=== PATIENT | male | born 1990 | race Caucasian/White ===

== ENCOUNTER 2019-05-18 16:11 | Emergency (ER) | payer SELFPAY ==
[~2019-05-18] VITALS: Ht 167.6 cm; Wt 63.5 kg
[~2019-05-18 16:11] MED LIST: CEPH500T PO
--- NOTE | 2019-05-18 16:15 | NUR ---
RIGHT ARM ELEVATED ON TWO PILLOWS ET ICE PACKS APPLIED..
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
--- OUTSIDE RECORDS SUMMARY | 2019-05-18 16:15 | XMS REPORT ---
Author Author CARMELITA JIMENEZ Organization [facility] Address [address] [place] [address] Care Team Providers Care Director Product Safety Name Role Phone CARMELITA JIMENEZ Unavailable PROBLEMS Unknown Problems ALLERGIES Substance Reaction Event Type Date Status N.K.D.A. Unknown Non Drug Allergy Oct, Unknown SOCIAL HISTORY No smoking Hx information available PLAN OF CARE Activity Details Follow Up prn Reason: VITAL SIGNS Height 65 in 2016-11-12 Weight 127.2 lbs 2016-11-12 Temperature 98.3 degrees Fahrenheit 2016-11-12 Heart Rate 76 bpm 2016-11-12 Respiratory Rate 18 2016-11-12 BMI 21.16 kg/m2 2016-11-12 Blood pressure systolic 128 mmHg 2016-11-12 Blood pressure diastolic 78 mmHg 2016-11-12 MEDICATIONS No Known Medications RESULTS Name Result Date Reference Range INFLUENZA A & B (IN HOUSE) 2016-11-12 INFLUENZA A negative INFLUENZA B negative Control + Lot # [id number] Exp date 2017 PROCEDURES Procedure Date Ordered Related Diagnosis Body Site INFLUENZA ASSAY W/OPTIC Nov 12, 2016 Office Visit, Est Pt., Level 3 Nov 12, 2016 IMMUNIZATIONS No Known Immunizations
--- NOTE | 2019-05-18 16:20 | NUR ---
MULTIPLE ABRASIONS ON BACK AND LACERATION CLEANED BY THE TECH.
--- NOTE | 2019-05-18 16:23 | NUR ---
PT BACK FROM CT ET COMPLAINS OF PAIN IN HIS COLARBONE. DR NOTIFIED ET NEW ORDERS RECIEVED.
[2019-05-18] MEDS ORDERED: fentaNYL INJECTION 100 MCG/2 ML AMP IVP ONE ×2 (16:30→19:45)
[2019-05-18] MEDS ORDERED: TETANUS,DIPTH,PERTUSS P/F (BOOSTRIX) 0.5 ML VIAL IM ONE (16:30)
[2019-05-18 16:43] LABS: BASOPHILS # (AUTO) 0.1 10^3/uL (0.0-0.1); BASOPHILS % (AUTO) 1 % (0-10); EOSINOPHILS % (AUTO) 0 % (0-10); HEMATOCRIT 48 % (40-54); HEMOGLOBIN 16.4 G/DL (13.3-17.7); LYMPHOCYTES # (AUTO) 0.8 X 10^3 (1.0-4.0); LYMPHOCYTES % (AUTO) 4 % (12-44); MEAN CORPUSCULAR HEMOGLOBIN 31 PG (25-34); MEAN CORPUSCULAR HGB CONC 35 G/DL (32-36); MEAN CORPUSCULAR VOLUME 90 FL (80-99); MONOCYTES # (AUTO) 1.1 X 10^3 (0.0-1.0); MONOCYTES % (AUTO) 6 % (0-12); NEUTROPHILS # (AUTO) 17.1 X 10^3 (1.8-7.8); NEUTROPHILS % (AUTO) 89 % (42-75); PLATELET COUNT 288 10^3/uL (130-400); RED CELL DISTRIBUTION WIDTH 13.1 % (10.0-14.5); WHITE BLOOD COUNT 19.1 10^3/uL (4.3-11.0)
[2019-05-18 17:06] LABS: ALANINE AMINOTRANSFERASE 40 U/L (0-55); ALBUMIN 4.7 GM/DL (3.2-4.5); ALKALINE PHOSPHATASE 74 U/L (40-136); BILIRUBIN,TOTAL 0.4 MG/DL (0.1-1.0); BUN/CREATININE RATIO 13; CALCIUM 9.7 MG/DL (8.5-10.1); CARBON DIOXIDE 27 MMOL/L (21-32); CHLORIDE 105 MMOL/L (98-107); CREATININE SERUM 1.18 MG/DL (0.60-1.30); GFR ESTIMATED > 60; GLUCOSE 124 MG/DL (70-105); POTASSIUM 4.4 MMOL/L (3.6-5.0); SODIUM 142 MMOL/L (135-145); TOTAL PROTEIN 7.4 GM/DL (6.4-8.2)
[2019-05-18 17:22] LABS: BAND NEUTROPHILS 0 %; BASOPHILS % (MANUAL) 0 %; EOSINOPHILS % (MANUAL) 0 %; LYMPHOCYTES % (MANUAL) 6 %; MONOCYTES % (MANUAL) 9 %; NEUTROPHILS % (MANUAL) 85 %
[2019-05-18 17:23] LABS: RBC MORPH NORMAL
[2019-05-18] MEDS ORDERED: morphine INJ 10 MG/ML 1ML (SYR OR VIAL) IVP STA (17:24)
--- NOTE | 2019-05-18 17:30 | NUR ---
PT PLACED IN SLING FOR COMFORT OF THE COLLARBONE. PT STATES IT IMMEDIATELY HELPED THE PAIN AFTER IT WAS PLACED.
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
[2019-05-18] MEDS ORDERED: LIDOCAINE 1% INJ 20 ML 20 ML VIAL ONE (17:58)
[2019-05-18] MEDS ORDERED: ETOMIDATE IV SOLN 20 MG/10 ML VIAL IV ONE (18:00)
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
[2019-05-18] MEDS ORDERED: LIDOCAINE 1% INJ 20 ML 20 ML VIAL INJ ONE (18:15)
[2019-05-18] MEDS ORDERED: OXYC-199 PO (18:42)
--- NOTE | 2019-05-18 18:57 | NUR ---
REPORT GIVEN TO JANET.
[2019-05-18] MEDS ORDERED: RX-OXYCODONE/APAP 5-325 MG #4 TAB PK PO PRN (19:00)
[2019-05-18] MEDS ORDERED: TRIM/SULFAMETH 160/800 (SEPTRA DS) TAB PO ONE (19:15)
[2019-05-18] MEDS ORDERED: fentaNYL INJECTION 100 MCG/2 ML AMP ONE (19:32)
[2019-05-18] MEDS ORDERED: CEPH-507 PO (19:36)
--- NOTE | 2019-05-18 19:53 | Diagnostic Imaging Report ---
INDICATION: Right wrist fracture, postreduction. TIME OF EXAM: 7:34 p.m. COMPARISON: Correlation is made with prior radiographs from earlier the same evening. FINDINGS: Wrist is now placed in a fiberglass splint. Distal radius fracture is again noted. There has been some improvement in the degree of dorsal displacement of distal radius fracture fragment although the there does appear to continue to be some mild displacement. Carpus and metacarpals are unremarkable. IMPRESSION: Improved alignment of the distal radius fracture, postreduction and splint placement. Dictated by: Dictated on workstation # [id number]
[2019-05-18 19:59] VITALS: BP 138/71
== END 2019-05-18 19:50 | disposition home or self-care (01) ==
LOC: EDUNIT# 16:11 → ER 16:13
DX: S62.114A Nondisplaced fracture of triquetrum [cuneiform] bone, right wrist, initial encounter for closed fracture (principal); S52.501A Unspecified fracture of the lower end of right radius, initial encounter for closed fracture; S42.022A Displaced fracture of shaft of left clavicle, initial encounter for closed fracture; S61.412A Laceration without foreign body of left hand, initial encounter; F17.200 Nicotine dependence, unspecified, uncomplicated; R40.2142 Coma scale, eyes open, spontaneous, at arrival to emergency department; R40.2252 Coma scale, best verbal response, oriented, at arrival to emergency department; R40.2362 Coma scale, best motor response, obeys commands, at arrival to emergency department; Z90.49 Acquired absence of other specified parts of digestive tract; V28.4XXA Motorcycle driver injured in noncollision transport accident in traffic accident, initial encounter
CPT/HCPCS: 29125; 36415; 71045; 73000; 73090; 73100; 73130; 80053; 80320; 85007; 85027; 90471; 90715; 96374; 96375; 96376

== ENCOUNTER → 2019-05-24 | Outpatient (CLI) | payer SELFPAY ==
[~2019-05-24] MED LIST changes: +CEPH-507 PO; +OXYC-199 PO
== END ==
LOC: ORTHO 09:24
PROVIDERS: ATTEND Orthopaedic Surgery
DX: S62.114A Nondisplaced fracture of triquetrum [cuneiform] bone, right wrist, initial encounter for closed fracture (principal); S52.501A Unspecified fracture of the lower end of right radius, initial encounter for closed fracture; S42.022A Displaced fracture of shaft of left clavicle, initial encounter for closed fracture; V28.4XXA Motorcycle driver injured in noncollision transport accident in traffic accident, initial encounter
CPT/HCPCS: 29065

== ENCOUNTER 2021-06-27 20:12 | Emergency (ER) | payer BC ==
[~2021-06-27] VITALS: Ht 167.7 cm; Wt 65.0 kg
[2021-06-27 20:23] VITALS: BP 121/76
--- NOTE | 2021-06-27 20:57 | ED Lower Extremity ---
General Chief Complaint: Laceration Stated Complaint: RIGHT CALF LACERATIONS Source: patient Exam Limitations: no limitations History of Present Illness Date Seen by Provider: Jun 27, 2021 Time Seen by Provider: 20:52 Initial Comments To ER with lacerations x2 to the lateral aspect of the right calf after cutting them on a ceramic piece of culvert. Tetanus vaccine is up-to-date. Onset: just prior to arrival Severity: moderate Pain/Injury Location: right leg Method of Injury: direct blow Modifying Factors: Worse With Movement Allergies and Home Medications Allergies Coded Allergies: No Known Drug Allergies (Unverified , 03/30/16) Home Medications Cephalexin 500 Mg Capsule, 500 MG PO BID Prescribed by: WYATT NAILS on 05/18/19 193 Oxycodone HCl/Acetaminophen 1 Each Tablet, 1-2 TAB PO Q4H PRN for PAIN-MODERATE Prescribed by: GRZEGORZ LEE on 05/18/19 184 Patient Home Medication List Home Medication List Reviewed: Yes Review of Systems Constitutional: see HPI EENTM: see HPI Respiratory: no symptoms reported Cardiovascular: no symptoms reported Genitourinary: no symptoms reported Musculoskeletal: no symptoms reported Skin: see HPI Psychiatric/Neurological: No Symptoms Reported Past Ixhwtzm-Znutic-Wfvugp Hx Patient Social History Tobacco Use?: Yes Tobacco type used: Cigarettes Smoking Status: Current Everyday Smoker Use of E-Cig and/or Vaping dev: No Substance use?: No Alcohol Use?: No Pt feels they are or have been: No Immunizations Up To Date Influenza Vaccine Up-to-Date: No; Not Current Past Medical History Surgeries: Yes Appendectomy Respiratory: No Cardiac: No Neurological: No Reproductive Disorders: No Gastrointestinal: No Musculoskeletal: No Endocrine: No HEENT: No Cancer: No Psychosocial: No Integumentary: No Physical Exam Vital Signs Capillary Refill : Less Than 3 Seconds Height, Weight, BMI Height: 5'6.00" Weight: 140lbs. oz. [id number]; BMI Method:Stated General Appearance: WD/WN, no apparent distress HEENT: PERRL/EOMI, normal ENT inspection Respiratory: no respiratory distress, no accessory muscle use Hips: bilateral hip non-tender, bilateral hip normal inspection, bilateral hip normal range of motion Legs: right leg other (There are 2 separate lacerations to the right lateral lower leg. The more superior laceration is 2 cm and the more inferior laceration is 3 cm. Depth is to the subcutaneous tissue.) Knees: bilateral knee non-tender, bilateral knee normal inspection, bilateral knee normal range of motion Ankles: bilateral ankle non-tender, bilateral ankle normal inspection, bilateral ankle normal range of motion Neurologic/Psychiatric: alert, normal mood/affect, oriented x 3 Skin: normal color, warm/dry Procedures/Interventions Patient Education: Explained Benefits, Explained Risks, Pt. Ack. Understanding Breath Sounds per Auscultation: Clear Heart Sounds per Auscultation: Regular Airway Exam: Mouth opens >2 fingers, Neck Full Range of Motion, Visulation of Uvula Sedation Adminstration Time: 1915 Re-examination Time: 1999 Suture Size: 4-0 Departure Communication (Admissions) Procedure note: The laceration was totaled 5 cm. The more superior laceration was anesthetized with 2 mL of 1% lidocaine without epinephrine buffered with sodium bicarbonate. A continuous suture size 4-0 Prolene was used to close the wound after irrigating thoroughly with chlorhexidine/saline solution. The more inferior laceration with depth to subcutaneous tissue was 3 cm and was anesthetized with 3 mL of 1% lidocaine without epinephrine and buffered with sodium bicarbonate. This was closed with a continuous suture size 4-0 Prolene as well. Impression Primary Impression: Laceration of leg Disposition: 01 HOME, SELF-CARE Condition: Stable Departure-Patient Inst. Decision time for Depature: 20:55 Referrals: [facility] (PCP/Family) Primary Care Physician Patient Instructions: Laceration Repair With Stitches ED Add. Discharge Instructions: 1. You can shower letting water run over this starting tonight. Keep it covered while at work or sleeping. Return to ER for any sign of infection such as redness swelling or puslike drainage. Return to ER in about 7 to 10 days to have the stitches removed. All discharge instructions reviewed with patient and/or family. Voiced understanding. Work/School Note: Work Release Form Date Seen in the Emergency Department: Jun 27, 2021 Return to Work: Jun 29, 2021 SHAGGY DOOLEY APRN Jun 27, 2021 20:56
== END 2021-06-27 20:59 | disposition home or self-care (01) ==
LOC: EDUNIT# 20:12 → ER 20:15
DX: S81.811A Laceration without foreign body, right lower leg, initial encounter (principal); F17.210 Nicotine dependence, cigarettes, uncomplicated; W26.8XXA Contact with other sharp object(s), not elsewhere classified, initial encounter